=== PATIENT | female | born 1990 | race American Indian/Alaskan Native ===

== ENCOUNTER 2017-09-04 23:37 | Inpatient (IN) | payer OTHER, MEDICAID ==
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
[2017-09-05] MEDS ORDERED: TYLENOL PO PRN ×2 (01:14→17:06)
[2017-09-05 02:02] LABS: Hematocrit 35.4 % (30.3-42.9); Mean Corpuscular HGB Conc 34 % (30-34); Mean Corpuscular Hemoglobin 30 pg (28-32); Mean Corpuscular Volume 87 fl (79-97); Platelet Count 307 K/mm3 (140-440); Red Blood Count 4.07 M/mm3 (3.65-5.03); Red Cell Distribution Width 13.6 % (13.2-15.2)
[2017-09-05 02:11] LABS: Amphetamine Screen,Urine PRESUMPTIVE NEGATIVE; Benzodiazepines Screen,Urine PRESUMPTIVE NEGATIVE; Cannabinoid Screen,Urine PRESUMPTIVE NEGATIVE; Cocaine Screen,Urine PRESUMPTIVE NEGATIVE; Methadone Screen,Urine PRESUMPTIVE NEGATIVE; Opiate Screen,Urine PRESUMPTIVE NEGATIVE
--- NOTE | 2017-09-05 02:18 | Ultrasound Report ---
FINAL REPORT PROCEDURE: US OB LIMITED TECHNIQUE: Real-time limited sonographic examination was performed for evaluation of size, position, heartbeat, fluid volume for each fetus with image documentation (1 or more fetuses). CPT 81764 HISTORY: leaking of fluid; MICHAEL COMPARISON: No prior studies are available for comparison. FINDINGS: Fetus is in a cephalic presentation. Amniotic fluid index is 3.5 centimeters which is consistent with oligohydramnios. Placenta is anterior and grade 1. heart rate is 135 beats per minute. IMPRESSION: Amniotic fluid index is 3.5 centimeters which is consistent with oligohydramnios.
[2017-09-05] MEDS: LACTATED RINGERS 1,000 ML IV SCH ×2 (02:32→09:30)
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
[2017-09-05] MEDS ORDERED: PHENERGAN PO PRN ×2 (05:50→17:06)
[2017-09-05] MEDS ORDERED: BRETHINE IVP PRN (05:50)
[2017-09-05] MEDS ORDERED: BRETHINE SUB-Q PRN (05:50)
[2017-09-05] MEDS ORDERED: MINERAL OIL PO PRN (05:50)
[2017-09-05] MEDS ORDERED: ZOFRAN IV PRN ×2 (05:50→17:06)
[2017-09-05] MEDS ORDERED: XYLOCAINE 2% INFILTRATI ONE ×2 (05:50→09:23)
[2017-09-05] MEDS ORDERED: ePHEDrine SULFATE IV PRN (05:50)
[2017-09-05] MEDS ORDERED: PITOCin/NS 20 UNIT/1000ML DRIP 20 UNITS/1,000 ML BAG IV SCH (06:00)
[2017-09-05] MEDS ORDERED: LACTATED RINGERS 1,000 ML IV SCH (06:00)
[2017-09-05] MEDS ORDERED: PITOCin/NS 30 UNIT/500ML 30 UNITS/500 ML BAG IV SCH ×2 (06:00)
[2017-09-05] MEDS ORDERED: NACL 0.9% 1000 ML 1,000 ML ONE (11:57)
--- NOTE | 2017-09-05 12:04 | Event Note ---
Date: 09/05/17 Several variable FHR decelerations noted with rapid return to normal baseline FHR; variability moderate. IUPC placed without difficulty; amnioinfusion ordered. Lateral positioning instituted. Cervix is 3/100/-1. Clear amniotic fluid.
[2017-09-05] MEDS: SUBLIMAZE IV PRN ×2 (12:13→14:13)
[2017-09-05] MEDS ORDERED: NACL 0.9% VG SCH (13:00)
--- NOTE | 2017-09-05 13:32 | Event Note ---
Date: 09/05/17 SVE /-1.
[2017-09-05] MEDS ORDERED: NARCAN 2 MG/2 ML IV PRN (14:49)
--- NOTE | 2017-09-05 14:55 | Event Note ---
Date: 09/05/17 Patient requests epidural. Cervix is 5/100/0. FRH baseline 145-150 with moderate variability and early FHR decelerations. Occasional FHR deceleration with rapid return to baseline. Amnioinfusion has been infusing for variable FHR decelerations. Pitocin has been turned off. Contractions every 2-3 minutes, moderate to palpation; uterus palpates soft between contractions. Patient has oxygen at 10 LPM per face mask.
[2017-09-05] MEDS ORDERED: fentaNYL-BUPIV 2 MCG/ML-0.125% 200 MCG/100 ML BAG EPIDURAL SCH (15:00)
--- NOTE | 2017-09-05 15:14 | Anesthesia Consultation ---
Anesthesia Consult and Med Hx Date of service: 09/05/17 - Airway Anesthetic Teeth Evaluation: Good ROM Head & Neck: Adequate Mental/Hyoid Distance: Adequate Intubation Access Assessment: Possibly Difficult - Pre-Operative Health Status ASA Pre-Surgery Classification: ASA2, Emergency Proposed Anesthetic Plan: Epidural, Spinal - Pulmonary Hx Asthma: No COPD: No Hx Pneumonia: No - Cardiovascular System Hx Hypertension: No - Central Nervous System Hx Seizures: No Hx Psychiatric Problems: No - Endocrine Hx Renal Disease: No Hx End Stage Renal Disease: No Hx Hypothyroidism: No Hx Hyperthyroidism: No - Hematic Hx Anemia: No Hx Sickle Cell Disease: No - Other Systems Hx Alcohol Use: No
[2017-09-05] MEDS ORDERED: BENADRYL PO PRN (17:06)
[2017-09-05] MEDS ORDERED: LANSINOH TP PRN (17:06)
[2017-09-05] MEDS ORDERED: TUCKS PAD TP PRN (17:06)
[2017-09-05] MEDS ORDERED: DULCOLAX PR PRN (17:06)
[2017-09-05] MEDS ORDERED: MILK OF MAGNESIA PO PRN (17:06)
--- NOTE | 2017-09-05 17:09 | Procedure Note ---
OB Delivery Note - Delivery Date of Delivery: 09/05/17 Surgeon: FLOYD VENTURA Estimated blood loss: 300cc - Vaginal Delivery presentation: vertex Delivery position: OA Intrapartum events: none Delivery induction: none Delivery augmentation: pitocin Delivery monitor: external FHT, external uterine, internal FHT, internal uterine Route of delivery: Delivery placenta: spontaneous Delivery cord: 3 umbilical vessels Episiotomy: none Delivery laceration: none Anesthesia: epidural Delivery comments: Spontaneous vaginal delivery of liveborn male over intact perineum with apgars of 8/9. Baby's weight was 2.608 kg. Baby placed immediately on maternal abdomen after delivery. Short cord noted. Spontaneous cry and respirations. Spontaneous delivery of intact placenta and membranes by valverde mechanism. EBL 300 cc. Pitocin to IV fluids after delivery of placenta. Fundus firm and midline. No lacerations noted. Vaginal sweep negative. Sponge count correct.
[2017-09-05] MEDS ORDERED: SODIUM CHLORIDE FLUSH SYRINGE 10 ML IV SCH (18:00)
[2017-09-05] MEDS: MOTRIN PO SCH (20:31)
[2017-09-06] MEDS: MOTRIN PO SCH ×4 (06:14→18:20)
[2017-09-06 06:58] LABS: Hematocrit 31.7 % (30.3-42.9); Hemoglobin 10.5 gm/dl (10.1-14.3)
--- NOTE | 2017-09-06 09:26 | Progress Note ---
Assessment and Plan A: day 1 S/P . Anemia. P: Supplement with iron BID. Anticipate discharge tomorrow. Subjective - Subjective Date of service: 09/06/17 Principal diagnosis: day 1 S/P Interval history: day 1 S/P . Patient is doing well. Patient reports small amount of lochia. She is ambulating without difficulty. Voiding without difficulty. Tolerating a regular diet without nausea or vomiting. Patient denies headache, chest pain, cough, shortness of breath, abdominal pain , leg pain, or any other problems. Patient states she does not plan to use contraception. Patient reports: appetite normal, voiding normally, pain well controlled, flatus , ambulating normally [place]: doing well Objective - Vital Signs Latest vital signs: Vital Signs Temp Pulse Resp BP BP Pulse Ox 09/06/17 08:24 98.0 F 80 18 122/74 98 09/06/17 04:20 98.0 F 89 20 106/51 09/06/17 00:00 98.2 F 79 20 113/61 09/05/17 19:05 98.5 F 71 20 118/65 09/05/17 17:41 75 124/68 09/05/17 17:31 77 124/68 09/05/17 17:16 80 114/77 09/05/17 17:01 90 133/75 09/05/17 16:46 76 138/71 09/05/17 16:32 92 H 128/65 09/05/17 16:30 98.8 F 09/05/17 16:25 81 133/75 09/05/17 16:20 81 136/76 09/05/17 16:16 73 152/89 09/05/17 16:09 69 128/68 09/05/17 16:05 67 129/64 09/05/17 16:01 66 131/66 09/05/17 15:55 69 125/70 09/05/17 15:50 68 123/67 09/05/17 15:45 66 119/65 09/05/17 15:39 65 114/57 09/05/17 15:34 63 112/55 09/05/17 15:29 63 113/55 09/05/17 15:24 68 109/57 09/05/17 15:19 68 111/56 09/05/17 15:18 68 107/63 09/05/17 15:10 91 H 129/82 09/05/17 15:08 71 126/68 09/05/17 15:00 98.6 F 09/05/17 14:49 69 141/83 09/05/17 14:19 71 142/65 09/05/17 13:49 76 133/90 09/05/17 13:18 83 136/85 09/05/17 13:00 97.8 F 09/05/17 12:49 78 141/84 09/05/17 12:19 82 135/84 09/05/17 11:20 98.7 F 09/05/17 11:18 70 116/77 09/05/17 10:49 94 H 125/69 09/05/17 10:20 82 104/54 09/05/17 09:49 78 120/74 Intake and Output 09/05/17 09/06/17 09/06/17 23:59 07:59 15:59 Intake Total 240 Output Total 1150 500 Balance -1150 -260 Intake: Oral 240 Output: Urine 1150 500 Void 1150 500 Other: Total, Intake Amount 240 Total, Output Amount 650 500 Estimated Blood Loss 300 - Exam Breasts: Present: deferred Cardiovascular: Present: Regular rate, Normal S1, Normal S2, No murmurs Lungs: Present: Clear to auscultation Abdomen: Present: normal appearance, soft. Absent: distention, tenderness, guarding, rigidity Uterus: Present: normal, firm, fundal height below umbilicus. Absent: bogginess , tenderness Extremities: Present: normal. Absent: tenderness, edema
[2017-09-06] MEDS: FEOSOL PO SCH (10:41)
[2017-09-07] MEDS ORDERED: BOOSTRIX IM ONE ×2 (06:00→13:00)
[2017-09-07] MEDS: FEOSOL PO SCH (10:44)
--- NOTE | 2017-09-07 10:47 | Progress Note ---
Assessment and Plan - Patient Problems (1) Status post normal vaginal delivery Current Visit: Yes Status: Acute Plan to address problem: PPD 2 - stable Continue routine PP orders Discharge to home today F/U with [facility] in 6 weeks for PP exam Subjective - Subjective Date of service: 09/07/17 Principal diagnosis: s/p , PPD #2 Patient reports: appetite normal, voiding normally, pain well controlled, ambulating normally [place]: doing well, bottle feeding Objective - Vital Signs Latest vital signs: Vital Signs Temp Pulse Resp BP BP Pulse Ox 09/07/17 07:42 98.1 F 71 16 121/65 99 09/07/17 00:00 98.2 F 79 18 116/58 09/06/17 15:04 98.1 F 73 18 105/57 98 09/06/17 11:57 97.4 F L 64 18 113/59 100 Intake and Output 09/06/17 09/07/17 09/07/17 23:59 07:59 15:59 Intake Total 480 Balance 480 Intake: Oral 480 Other: Total, Intake Amount 240 # Voids Void 1 - Exam Cardiovascular: Present: Regular rate Lungs: Present: Clear to auscultation Abdomen: Present: normal appearance, soft Vulva: both: normal Uterus: Present: normal, firm, fundal height below umbilicus Extremities: Present: normal
--- NOTE | 2017-09-07 10:49 | Discharge Summary ---
Providers - Providers Date of Admission: 09/05/17 01:30 Date of discharge: 09/07/17 Attending physician: RG CASTELLANOS Primary care physician: RG CASTELLANOS Hospitalization Reason for admission: rupture of membranes, IUP at term Delivery: Episiotomy: none Laceration: none Other procedures: none complications: none Discharge diagnosis: IUP at term delivered baby: male Hospital course: Uncomplicated Condition at discharge: Stable Disposition: [place]-01 TO HOME OR SELFCARE - Discharge Diagnoses (1) Status post normal vaginal delivery Status: Acute Plan - Provider Discharge Summary Activity: routine, no sex for 6 weeks, no heavy lifting 4 weeks, no strenuous exercise Diet: routine Instructions: routine Additional instructions: [] Smoking cessation referral if applicable(refer to patient education folder for contact #) [] Refer to [facility] Booklet Call your doctor immediately for: * Fever > 100.5 * Heavy vaginal bleeding ( >1 pad per hour) * Severe persistent headache * Shortness of breath * Reddened, hot, painful area to leg or breast * Drainage or odor from incision. * Keep incision clean and dry at all times and follow doctor's instructions regarding bathing/showering - Follow up plan Follow up: PRIMARY CAR[facility]D [Referring] - 3-5 Days ARTURO CORONEL MD [Staff Physician] - 6 Weeks (Follow up with [facility] in 6 weeks for exam)
[2017-09-07] MEDS: MOTRIN PO SCH ×2 (12:00)
[2017-09-07 12:52] VITALS: BP 127/78
== END 2017-09-07 13:10 | disposition home or self-care (01) | DRG 775 ==
LOC: TRG 23:37 → EDSTATUS 23:41 → TRG 23:44 → LD 09-05 01:30 → OB 09-05 18:46
PROVIDERS: ADMIT Obstetrics & Gynecology Gynecology; ATTEND Obstetrics & Gynecology Gynecology
PROC: 10E0XZZ Delivery of Products of Conception, External Approach (ICD-10-PCS; principal; 2017-09-05)
PROC: 3E0R3BZ Introduction of Anesthetic Agent into Spinal Canal, Percutaneous Approach (ICD-10-PCS; 2017-09-05)
PROC: 00HU33Z Insertion of Infusion Device into Spinal Canal, Percutaneous Approach (ICD-10-PCS; 2017-09-05)
PROC: 30233S1 Transfusion of Nonautologous Globulin into Peripheral Vein, Percutaneous Approach (ICD-10-PCS; 2017-09-06)
PROC: 3E0234Z Introduction of Serum, Toxoid and Vaccine into Muscle, Percutaneous Approach (ICD-10-PCS; 2017-09-07)
DX: O76 Abnormality in fetal heart rate and rhythm complicating labor and delivery (principal); Z3A.37 37 weeks gestation of pregnancy; Z37.0 Single live birth; O36.5930 Maternal care for other known or suspected poor fetal growth, third trimester, not applicable or unspecified; V89.2XXA Person injured in unspecified motor-vehicle accident, traffic, initial encounter; Y93.89 Activity, other specified; Y92.89 Other specified places as the place of occurrence of the external cause; Y99.8 Other external cause status; Z23 Encounter for immunization; Z29.13 Encounter for prophylactic Rho(D) immune globulin; O99.02 Anemia complicating childbirth; D64.9 Anemia, unspecified
CPT/HCPCS: 36415; 76815; 80307; 85014; 85018; 85027; 85461; 86592; 86850; 86900; 86901; 90715; J2405; J2590; J2790; J3010; J7030; J7120